=== PATIENT | male | born 1980 | race Caucasian/White ===

== ENCOUNTER 2024-06-02 07:02 | Day surgery (SDC) | payer OTHER ==
[2024-06-02] MEDS ORDERED: fentaNYL 50 MCG/ML SDV ONE (08:17)
[2024-06-02] MEDS ORDERED: Propofol 200 MG/20 ML SDV ONE ×2 (08:17→09:40)
[2024-06-02] MEDS ORDERED: Midazolam 1 MG/ML 2 ML SDV ONE (08:17)
[2024-06-02] MEDS: Lactated Ringers 1,000 ML IV SCH (08:19)
== END 2024-06-02 11:08 | disposition home or self-care (01) ==
LOC: JP.SDS 07:02
PROVIDERS: ATTEND Surgery
DX: K63.5 Polyp of colon (principal); Z87.891 Personal history of nicotine dependence
CPT/HCPCS: 00811; 45380; 88305; J2250; J2704; J3010; J7120